=== PATIENT | female | born 1940 | race Caucasian/White ===

== ENCOUNTER 2018-12-17 14:57 | Emergency (ER) | payer OTHER ==
[2018-12-17] MEDS: SODIUM CHLORIDE 0.9% 1L BAG IV* (15:21)
[2018-12-17] MEDS: CEFEPIME 2GM/50 ML (PMX) 50 ML IVPB (15:23)
[2018-12-17] MEDS ORDERED: ACETAMINOPHEN 650 MG SUPP PR (15:53)
[2018-12-17 15:55] LABS: ADD UMIC YES; UR ASCORBIC ACID NEGATIVE (NEGATIVE); UR BILIRUBIN (Dip) NEGATIVE (NEGATIVE); UR BLOOD (Dip) NEGATIVE (NEGATIVE); UR CLARITY SLIGHTLY CLOUDY (CLEAR); UR COLOR YELLOW (YELLOW); UR GLUCOSE (Dip) NEGATIVE (NEGATIVE); UR KETONES (Dip) TRACE mg/dL (NEGATIVE); UR LEUKOCYTE ESTERASE (Dip) TRACE Leu/ul (NEGATIVE); UR MUCUS FEW /HPF (NONE SEEN); UR NITRITE (Dip) NEGATIVE (NEGATIVE); UR RBC 5 /HPF (0-5); UR SPECIFIC GRAVITY (Dip) 1.019 (1.003-1.030); UR TOTAL PROTEIN (Dip) 2+ mg/dl (NEGATIVE); UR UROBILINOGEN (Dip) NEGATIVE (NEGATIVE); UR WBC 5 /HPF (0-5)
[2018-12-17 16:02] LABS: LACTIC ACID 1.6 mmol/L (0.5-2.0)
[2018-12-17] MEDS: VANCOMYCIN 1 GM (PMX) 250 ML IVPB (16:03)
[2018-12-17] MEDS: ACETAMINOPHEN 650 MG SUPP PR (16:16)
[2018-12-17 16:32] LABS: INR 1.17; PT RATIO 1.2
[2018-12-17 16:33] LABS: PARTIAL THROMBOPLASTIN TIME 40.7 Sec (23.0-35.0)
[2018-12-17] MEDS: SOD CHLORIDE 0.9% 100 ML (16:51)
[2018-12-17] MEDS: IOHEXOL 100 ML (16:51)
[2018-12-17] MEDS: LORAZEPAM 2 MG INJ IV (16:57)
[2018-12-17 17:13] LABS: ABNORMAL IP MESSAGE 1; HEMATOCRIT 25.3 % (37.0-47.0); MEAN CORPUSCULAR HEMOGLOBIN 17.4 pg (29.0-33.0); MEAN CORPUSCULAR HGB CONC 26.9 g/dl (32.0-37.0); MEAN CORPUSCULAR VOLUME 64.7 fl (82.0-101.0); MEAN PLATELET VOLUME 10.4 fl (7.4-10.4); PLATELET COUNT 345 10^3/UL (140-415); RED BLOOD COUNT 3.91 10^6/ul (4.20-5.40); RED CELL DISTRIBUTION WIDTH 16.8 % (11.5-14.5)
[2018-12-17 17:16] LABS: ADD MAN DIFF? YES; HEMOGLOBIN 6.8 g/dl (12.0-16.0); POSITIVE DIFF @See below
[2018-12-17 17:17] LABS: PATH REVIEW? YES
[2018-12-17 17:22] LABS: ALANINE AMINOTRANSFERASE 24 IU/L (13-69); ALBUMIN 3.9 g/dl (3.3-4.9); ALBUMIN/GLOBULIN RATIO 1.21; ALKALINE PHOSPHATASE 80 IU/L (42-121); ANION GAP 12 (5-13); ASPARTATE AMINO TRANSFERASE 34 IU/L (15-46); BILIRUBIN,INDIRECT 0.5 mg/dl (0-1.1); BILIRUBIN,TOTAL 0.5 mg/dl (0.2-1.3); BLOOD UREA NITROGEN 16 mg/dl (7-20); CALCIUM 8.8 mg/dl (8.4-10.2); CARBON DIOXIDE 25 mmol/L (21-31); CHLORIDE 96 mmol/L (97-110); CREATININE 0.82 mg/dl (0.44-1.00); GLUCOSE 144 mg/dl (70-220); LIPASE 39 U/L (23-300); POTASSIUM 3.5 mmol/L (3.5-5.1); SODIUM 133 mmol/L (135-144); TOTAL PROTEIN 7.1 g/dl (6.1-8.1)
[2018-12-17 17:45] LABS: TROPONIN-I 0.889 ng/ml (0.000-0.120)
[2018-12-17] MEDS ORDERED: SOD CHLORIDE 0.9% 0 ML IV (17:46)
[2018-12-17 19:04] LABS: ANISOCYTOSIS 2+ (0-0); BAND NEUTROPHILS #M 2.7 10^3/ul (0.0-0.6); BAND NEUTROPHILS % (M) 18 % (0-4); BASOPHIL #M 0.1 10^3/ul (0.0-0.0); BASOPHILS % (M) 1 % (0-2); EOSINOPHILS % (M) 2 % (0-7); LYMPHOCYTES #M 0.3 10^3/ul (0.8-2.9); LYMPHOCYTES % (M) 2 % (15-51); MICROCYTOSIS 2+ (0-0); PLATELET ESTIMATE NORMAL; POIKILOCYTOSIS 2+ (0-0); POLYCHROMASIA 1+ (0-0); SEGMENTED NEUTROPHILS (M) % 77 % (39-77); SMUDGE%M 5 % (0-0)
[2018-12-17] MEDS: HALOPERIDOL 5 MG INJ IV (19:44)
[2018-12-17 20:16] LABS: IMMEDIATE SPIN CROSSMATCH 1 1
== END 2018-12-17 21:11 | disposition home or self-care (01) ==
LOC: E/R 21:11
DX: R41.82 Altered mental status, unspecified (principal); A41.9 Sepsis, unspecified organism; I21.4 Non-ST elevation (NSTEMI) myocardial infarction; D64.9 Anemia, unspecified
CPT/HCPCS: 36415; 36430; 70450; 70496; 70498; 71045; 80053; 81001; 83605; 83690; 84484; 85025; 85610; 85730; 86850; 86900; 86901; 86920; 87040; 87086; 87400; 93005; 96374; 96375; 99291-25